=== PATIENT | female | born 1950 | race African-American/Black ===

== ENCOUNTER → 2016-09-03 | Outpatient (CLI) | payer OTHER ==
[~2016-09-03] MED LIST: ATIVAN0.5 M1 PO; COMPAZINE10 MG; DUONEB 2.5-0.5 M3 ML INH; GLIPIZIDE 10 MG10 MG PO; HYTRIN 2MG CAPSU2 M1 PO; IBUPROFEN 400400 M2 PO; IMITREX 25 MG T25 M1; IRON325 PO; LEVAQUIN 500 M500 M2 PO; MELOXICAM15 MG PO; METFORMIN HCL500 MG PO; OMEPRAZOLE20 M2 PO; PENTOXIFYLLINE400 MG PO; PREDNISONE 10 M10 MG PO; PREDNISONE 20 M20 MG PO; REMERON15 MG PO; TESSALON PERLE100 MG PO; TYLENOL325 MG PO; VERAPAMIL ER120 M1 PO; VIRTUSSIN AC L473 ML PO; VITAMIN E100 UNIT PO
== END ==
LOC: ULTRA 15:34
DX: R19.02 Left upper quadrant abdominal swelling, mass and lump (principal)

== ENCOUNTER → 2017-06-01 | Outpatient (CLI) | payer OTHER ==
[~2017-06-01] MED LIST changes: +ATIVAN0.5 MG PO; +CLONAZEPAM 0.50.5 M1 PO; +HYDROCODONE-AP1 EA11 PO; +HYDROCODONE-AP1 EAC6 PO; +HYDROXYZINE HCL25 M1 PO; +IBUPROFEN 200200 M1 PO; +IMITREX100 MG PO; +LABETALOL 100100 MG PO; +METFORMIN HCL1000 MG PO; +OMEPRAZOLE40 MG PO; +RALOXIFENE HCL60 MG PO; +WELLBUTRIN SR150 MG PO
== END ==
LOC: PAIN 07-13 08:56 → MRI 12:10
DX: M47.26 Other spondylosis with radiculopathy, lumbar region (principal); M47.897 Other spondylosis, lumbosacral region; M48.061 Spinal stenosis, lumbar region without neurogenic claudication; G89.29 Other chronic pain

== ENCOUNTER → 2017-06-24 | Outpatient (CLI) | payer OTHER ==
[~2017-06-24] VITALS: Ht 157.5 cm; Wt 91.0 kg
[~2017-06-24] MED LIST changes: -RALOXIFENE HCL60 MG PO; -WELLBUTRIN SR150 MG PO
--- NOTE | ~2017-06-24 | HPC ---
[facility] [place] [address] PAIN MANAGEMENT CONSULTATION Name: RUBÉN TORRES Room #: REG VICKI Golden.#: [id number] Admission: 06/24/17 Attend Phys: Kian Trinidad MD Discharge: Date of : 52 Report #: [id number] THIS REPORT FOR: //name// CC: Kian Sears MD DATE OF SERVICE: 06/24/2017 Followup visit for severe axial low back pain without radiculopathy. The patient returns to the pain clinic today to review her MRI scan and also discuss further treatments. Her x-rays are interesting and a bit unusual. At L4-L5, there is facet spurring and degenerative changes. These of course are common. The L4 and L5 vertebral bodies; however, show marrow edema involving the pedicles, facets and pars regions. Some of this marrow edema may be related to severe facet degenerative changes. There is facet joint fluid bilaterally at this level and facet arthropathy. Extension of the marrow edema into the pedicles may also indicate a stress reaction or developing stress fracture. This is felt unlikely to be related to erosive arthritis or infection. It is interesting to note that she has had aggressive treatment for her facet arthropathy. Two to three years ago, she underwent radiofrequency ablation with Dr. Richter at Pain. It was modestly helpful. Pain; however, is now returning and had been present for about a year. These changes are suggestive of a stress reaction and may well be the cause of her pain as well as the potential for simple facet arthropathy related to the joints themselves. Using an x-ray, I discussed these findings with her. A call was placed to Dr. Sears to make sure that he was aware of. IMPRESSION: Lumbar degenerative changes with facet arthropathy and arthritis as well as pedicle stress reaction and possible pending stress fracture. RECOMMENDATION: I have suggested an Marfa brace. This is a very comfortable and very stable brace for lumbosacral segment. Orders were sent and a [employer] representative should call the patient to fit the brace properly. I think this condition warrants the best most comfortable brace that we can find and I found Marfa to fit that bill. No new medications were ordered. She will continue to receive her medication from Dr. Sears. By: [id number] Kian Trinidad MD /nt
[2017-06-24 15:27] VITALS: BP 140/77
== END ==
LOC: PAIN 07:25
DX: M47.896 Other spondylosis, lumbar region (principal)

== ENCOUNTER → 2017-09-02 | Outpatient (CLI) | payer OTHER ==
[~2017-09-02] VITALS: Ht 157.5 cm; Wt 91.2 kg
[~2017-09-02] MED LIST changes: +WELLBUTRIN SR150 MG PO
--- NOTE | ~2017-09-02 | HPC ---
[facility] [place] [address] PAIN MANAGEMENT CONSULTATION Name: RUBÉN TORRES [facility]: [facility] [id number] Admission: 09/02/17 Attend Phys: Kian Trinidad MD Discharge: Date of : 52 Report #: [id number] THIS REPORT FOR: //name// CC: Kian Sears DATE OF SERVICE: 09/02/2017 Followup visit for low back pain with radiculopathy. The patient returns to the Pain Clinic today for the epidural injection discussed. Preauthorization was sought on 08/02/2017 and we have been able to obtain authorization to go forward. We reviewed her back findings including the stress reaction at the pars. I did order an axial brace for her and we have recent information hopefully to allow for the brace to be covered by her insurance. Today, she has pain that is more radicular than it is lumbosacral. At this time, it radiates down the posterior lateral aspect of the left leg. She scores the intensity as a 7 or higher. It is worse with weightbearing. The rest of physical exam is unchanged from 3 weeks ago. We have reviewed the details of that visit. PHYSICAL EXAMINATION: Her vital signs today are stable at 142/72 blood pressure, 66 heart rate, 16 respirations, O2 sat 98% with a BMI of 36.8. IMPRESSION: 1. Low back pain with radicular features involving the L4 nerve root. 2. Marked spinal stenosis at L4-L5 with diffuse disk bulging and associated spinal stenosis. PLAN: Epidural steroid injection under fluoroscopic guidance. She was taken to fluoroscopy suite. She was placed prone. Skin prepped with ChloraPrep. Skin anesthetized over the L4-L5 level. A 20-gauge Tuohy epidural needle was advanced first attempt in the epidural space with loss of resistance technique. There was no blood nor CSF aspirated. I injected 1 mL of Omnipaque and was noted that there was some anterior spread of dye, although the majority of dye spreading into the left L4 and L5 neural foramen. I then injected 3 mL of 0.5% lidocaine mixed with 80 mg of triamcinolone. She tolerated the procedure well. She did have some increasing numbness in recovery room and required a little longer stay. She was dismissed at 1455, nearly 2 hours following her injection. Was in stable condition with a steady gait. [address] [address] PAIN MANAGEMENT CONSULTATION Name: RUBÉN TORRES DEREK [facility] [id number] Admission: 09/02/17 Attend Phys: Kian Trinidad MD Discharge: Date of : 52 Report #: [id number] Followup visit is planned by phone. We will see her back in the Pain Clinic in 1 month. By: [id number] Kian Trinidad MD /nt
[2017-09-02 13:25] VITALS: BP 142/74
== END | disposition home or self-care (01) ==
LOC: PAIN 07:02
DX: M48.061 Spinal stenosis, lumbar region without neurogenic claudication (principal); M54.16 Radiculopathy, lumbar region; G89.29 Other chronic pain; Z87.891 Personal history of nicotine dependence; Z88.0 Allergy status to penicillin; Z88.2 Allergy status to sulfonamides; Z88.8 Allergy status to other drugs, medicaments and biological substances; Z79.899 Other long term (current) drug therapy

== ENCOUNTER → 2018-02-24 | Outpatient (CLI) | payer OTHER ==
[~2018-02-24] MED LIST changes: +RALOXIFENE HCL60 MG PO
== END ==
LOC: RAD 14:06
DX: M19.012 Primary osteoarthritis, left shoulder (principal); G31.9 Degenerative disease of nervous system, unspecified; M85.2 Hyperostosis of skull; W19.XXXA Unspecified fall, initial encounter; Y93.89 Activity, other specified; Y92.89 Other specified places as the place of occurrence of the external cause; Y99.8 Other external cause status

== ENCOUNTER → 2018-05-06 | Outpatient (CLI) | payer OTHER ==
[~2018-05-06] MED LIST changes: +ASPIR-LOW81 MG PO; +CYMBALTA60 MG PO; +HYDROCHLOROTHIA25 M2 PO; +LABETALOL HCL100 MG PO; +LIORESAL 10 MG10 MG PO; +NEURONTIN 400400 M1 PO; +NORCO 7.5-3251 EACH PO; +PREDNISONE 20 M20 M1 PO; +SSD CREAM 1% 5050 GM TOP; +VERAPAMIL E.R240 M1 PO
== END ==
LOC: ULTRA 10:41
DX: N60.01 Solitary cyst of right breast (principal)

== ENCOUNTER → 2018-05-09 | Outpatient (CLI) | payer OTHER | LOC: HYPER 06:53 | DX: S81.002A Unspecified open wound, left knee, initial encounter (principal); R21 Rash and other nonspecific skin eruption; E11.620 Type 2 diabetes mellitus with diabetic dermatitis; E78.5 Hyperlipidemia, unspecified; E66.9 Obesity, unspecified; G43.909 Migraine, unspecified, not intractable, without status migrainosus; I10 Essential (primary) hypertension; K21.9 Gastro-esophageal reflux disease without esophagitis; M48.062 Spinal stenosis, lumbar region with neurogenic claudication; F32.9 Major depressive disorder, single episode, unspecified; F41.9 Anxiety disorder, unspecified; Z68.36 Body mass index [BMI] 36.0-36.9, adult; Z87.891 Personal history of nicotine dependence; Z79.4 Long term (current) use of insulin; Z79.84 Long term (current) use of oral hypoglycemic drugs; Z79.52 Long term (current) use of systemic steroids; Z96.649 Presence of unspecified artificial hip joint; X58.XXXA Exposure to other specified factors, initial encounter; Y93.89 Activity, other specified; Y92.89 Other specified places as the place of occurrence of the external cause; Y99.8 Other external cause status ==

== ENCOUNTER → 2018-10-07 | Outpatient (CLI) | payer OTHER ==
[~2018-10-07] MED LIST changes: +NORFLEX100 MG PO
== END ==
LOC: RAD 15:09
DX: M16.12 Unilateral primary osteoarthritis, left hip (principal); M47.816 Spondylosis without myelopathy or radiculopathy, lumbar region; Z96.641 Presence of right artificial hip joint; M25.78 Osteophyte, vertebrae

== ENCOUNTER 2018-10-19 14:51 | Emergency (ER) | payer OTHER ==
[~2018-10-19] VITALS: Ht 160 cm; Wt 69.4 kg
[~2018-10-19 14:51] MED LIST changes: -NORFLEX100 MG PO
[2018-10-19] MEDS ORDERED: NORFLEX100 MG PO (15:48)
[2018-10-19] MEDS ORDERED: PREDNISONE 10 M10 MG PO (15:48)
[2018-10-19 16:38] VITALS: BP 160/68
== END 2018-10-19 16:20 | disposition home or self-care (01) ==
LOC: ER 14:51
DX: S39.012A Strain of muscle, fascia and tendon of lower back, initial encounter (principal); G89.29 Other chronic pain; M54.9 Dorsalgia, unspecified; I10 Essential (primary) hypertension; E11.9 Type 2 diabetes mellitus without complications; E78.5 Hyperlipidemia, unspecified; K21.9 Gastro-esophageal reflux disease without esophagitis; M19.90 Unspecified osteoarthritis, unspecified site; Z96.652 Presence of left artificial knee joint; Z98.890 Other specified postprocedural states; Z88.0 Allergy status to penicillin; Z88.2 Allergy status to sulfonamides; Z88.6 Allergy status to analgesic agent; W18.39XA Other fall on same level, initial encounter; Y92.89 Other specified places as the place of occurrence of the external cause; Y93.89 Activity, other specified; Y99.8 Other external cause status

== ENCOUNTER → 2018-11-10 | Outpatient (CLI) | payer OTHER ==
[~2018-11-10] MED LIST changes: +NORFLEX100 MG PO
== END ==
LOC: MRI 10:15
DX: M47.816 Spondylosis without myelopathy or radiculopathy, lumbar region (principal); M51.36 Other intervertebral disc degeneration, lumbar region; M47.817 Spondylosis without myelopathy or radiculopathy, lumbosacral region; M48.062 Spinal stenosis, lumbar region with neurogenic claudication

== ENCOUNTER → 2019-09-11 | Outpatient (CLI) | payer OTHER | LOC: BC 14:48 | PROVIDERS: ATTEND Neuromusculoskeletal Medicine & OMM | DX: Z12.31 Encounter for screening mammogram for malignant neoplasm of breast (principal) ==

== ENCOUNTER → 2019-11-23 | Outpatient (CLI) | payer OTHER | LOC: RAD 13:25 | PROVIDERS: ATTEND Neuromusculoskeletal Medicine & OMM | DX: M48.04 Spinal stenosis, thoracic region (principal); M43.26 Fusion of spine, lumbar region; Z96.641 Presence of right artificial hip joint ==

== ENCOUNTER → 2020-08-07 | Outpatient (CLI) | payer OTHER | LOC: SJCVCIMAG 07:44 | PROVIDERS: ATTEND Internal Medicine Cardiovascular Disease | DX: I08.1 Rheumatic disorders of both mitral and tricuspid valves (principal); R00.1 Bradycardia, unspecified; R06.00 Dyspnea, unspecified; E78.00 Pure hypercholesterolemia, unspecified; R60.9 Edema, unspecified; I49.3 Ventricular premature depolarization; I11.9 Hypertensive heart disease without heart failure; G89.29 Other chronic pain; M19.90 Unspecified osteoarthritis, unspecified site; E11.9 Type 2 diabetes mellitus without complications; G43.909 Migraine, unspecified, not intractable, without status migrainosus; Z88.0 Allergy status to penicillin; Z88.2 Allergy status to sulfonamides; Z88.8 Allergy status to other drugs, medicaments and biological substances; Z79.899 Other long term (current) drug therapy; Z87.891 Personal history of nicotine dependence; Z82.49 Family history of ischemic heart disease and other diseases of the circulatory system ==